=== PATIENT | male | born 1945 | race Caucasian/White ===

== ENCOUNTER 2017-12-27 10:08 | Day surgery (SDC) | payer OTHER ==
[~2017-12-27] VITALS: Ht 167.6 cm; Wt 118.0 kg
[~2017-12-27 10:08] MED LIST: ASPIRIN325 MG PO; ATORVASTATIN CA40 MG PO; FISH OIL 1,0001 EAC7 PO; FUROSEMIDE40 MG PO; GLIPIZIDE-METF1 EAC2 PO; GLUCOSA-CHOND-1 EACH PO; JANUVIA100 MG PO; LOSARTAN POTASS25 MG PO; MEN'S 50 PLUS1 EACH PO; METOPROLOL TART50 MG PO; OCUVITE ADULT1 EAC1 PO; TYLENOL WITH C1 EACH PO
== END 2017-12-27 17:50 | disposition home or self-care (01) ==
LOC: CATH 10:08
PROVIDERS: Internal Medicine Cardiovascular Disease
DX: I25.10 Atherosclerotic heart disease of native coronary artery without angina pectoris (principal); I25.82 Chronic total occlusion of coronary artery; I10 Essential (primary) hypertension; E11.9 Type 2 diabetes mellitus without complications; E78.5 Hyperlipidemia, unspecified; R00.1 Bradycardia, unspecified; Z95.1 Presence of aortocoronary bypass graft; E66.01 Morbid (severe) obesity due to excess calories; Z68.41 Body mass index [BMI] 40.0-44.9, adult; Z79.82 Long term (current) use of aspirin; Z79.84 Long term (current) use of oral hypoglycemic drugs; I25.2 Old myocardial infarction
CPT/HCPCS: 82948; C1769; C1887; C1894; J0360; J0461; J1644; J1815; J1940; J2250; J3010